=== PATIENT | female | born 1965 | race African-American/Black ===

== ENCOUNTER 2017-11-19 02:38 | Emergency (ER) | payer SELFPAY ==
[~2017-11-19] VITALS: Ht 182.9 cm; Wt 118.0 kg
[2017-11-19 02:40] VITALS: BP 171/102
== END 2017-11-19 08:52 | disposition left against medical advice (07) ==
LOC: ER 02:47
DX: Z53.21 Procedure and treatment not carried out due to patient leaving prior to being seen by health care provider (principal)

== ENCOUNTER 2017-11-20 02:23 | Emergency (ER) | payer OTHER ==
[~2017-11-20] VITALS: Ht 170.2 cm; Wt 91.0 kg
[2017-11-20 06:20] VITALS: BP 122/77
[2017-11-20] MEDS ORDERED: SULFAMETHOXAZOLE/TRIMETHOPRIM 800/160MG TABLET PO ONE (06:45)
[2017-11-20] MEDS ORDERED: DOXYCYCLINE HYCLATE 100MG CAPSULE PO ONE (06:45)
== END 2017-11-20 06:50 | disposition home or self-care (01) ==
LOC: ER 02:23
DX: L03.116 Cellulitis of left lower limb (principal); L03.115 Cellulitis of right lower limb; I10 Essential (primary) hypertension; F32.9 Major depressive disorder, single episode, unspecified; Z88.0 Allergy status to penicillin; Z88.5 Allergy status to narcotic agent
CPT/HCPCS: 99283